=== PATIENT | female | born 1955 | race Caucasian/White ===

== ENCOUNTER 2020-09-13 07:10 | Day surgery (SDC) | payer MEDICARE, BC ==
[2020-09-13] VITALS (13 sets, daily range): BP systolic 111–165; BP diastolic 60–88
[~2020-09-13] VITALS: Ht 172.7 cm; Wt 78.3 kg
[2020-09-13] MEDS ORDERED: diphenhydrAMINE 25mg capsule PO PRN (07:40)
[2020-09-13] MEDS ORDERED: normal saline 1,000 ML IV SCH (07:40)
[2020-09-13] MEDS ORDERED: TURM500C4 PO (07:55)
[2020-09-13] MEDS ORDERED: CYAN-34 PO (07:55)
[2020-09-13] MEDS ORDERED: BIOT5000 PO (07:55)
[2020-09-13] MEDS ORDERED: LACT1CAP65 PO (07:55)
[2020-09-13] MEDS ORDERED: METO50TA16 PO (07:55)
[2020-09-13] MEDS ORDERED: ASCO-139 PO (07:55)
[2020-09-13] MEDS ORDERED: METF-438 PO (07:55)
[2020-09-13] MEDS ORDERED: ROSU20TA31 PO (07:55)
[2020-09-13] MEDS ORDERED: GLYB5TAB7 PO (07:55)
[2020-09-13] MEDS ORDERED: PROP425C PO (07:55)
[2020-09-13] MEDS ORDERED: CHOL100025 PO (07:55)
[2020-09-13 08:07] LABS: BASOPHILS % (AUTO) 0.6 % (0-1); EOSINOPHILS # (AUTO) 0.3 X10'3 (0-0.9); EOSINOPHILS % (AUTO) 3.9 % (0-6); HEMATOCRIT 43.1 % (35.0-45.0); HEMOGLOBIN 14.6 g/dl (12.0-16.0); LYMPHOCYTES # (AUTO) 1.4 X10'3 (1.1-4.8); LYMPHOCYTES % (AUTO) 21.2 % (21-51); MEAN CORPUSCULAR HGB CONC 33.9 g/dL (33.0-36.5); MEAN CORPUSCULAR VOLUME 97.3 FL (78-98); MEAN PLATELET VOLUME 7.5 FL (7.4-10.4); MONOCYTES # (AUTO) 0.4 X10'3 (0-0.9); MONOCYTES % (AUTO) 6.7 % (2-12); NEUTROPHILS # (AUTO) 4.5 X10'3 (1.8-7.7); NEUTROPHILS % (AUTO) 67.6 % (42-75); PLATELET COUNT 195 X10'3 (140-440); RED BLOOD COUNT 4.42 X10'6 (4.20-5.60); RED CELL DISTRIBUTION WIDTH 13.5 % (11.5-14.5); WHITE BLOOD COUNT 6.7 X10'3 (4.5-11.0)
[2020-09-13 08:16] LABS: ALBUMIN 4.1 G/DL (3.4-5.0); ANION GAP 11 (8-16); BLOOD UREA NITROGEN 12 MG/DL (7-18); BUN/CREATININE RATIO 14.1 (6.6-38.0); CALCIUM 9.4 MG/DL (8.5-10.1); CHLORIDE 104 MMOL/L (99-107); CREATININE 0.85 MG/DL (0.40-0.90); GLUCOSE 159 MG/DL (70-104); MAGNESIUM 1.8 MG/DL (1.5-2.4); POTASSIUM 4.4 MMOL/L (3.5-5.1); SODIUM 143 MMOL/L (135-145); TOTAL CARBON DIOXIDE 27.7 MMOL/L (24-32); eGFR 67 ML/MIN
[2020-09-13] MEDS ORDERED: fentaNYL/PF 50MCG/1 ML 2ML syringe ONE ×2 (08:53→10:11)
[2020-09-13] MEDS ORDERED: midazolam 1 mg/ML 2ml injection ONE ×4 (08:53→10:46)
[2020-09-13] MEDS ORDERED: LIDOcaine 1% (10mg/ml)w/preservative injection 20ml MDV ONE (08:54)
[2020-09-13] MEDS ORDERED: iohexol 350MG/ML 100ml bottle IV ONE ×4 (08:54→11:00)
[2020-09-13] MEDS ORDERED: iohexol 350 MG/ML 50ML vial IV ONE (08:54)
[2020-09-13] MEDS ORDERED: heparin 1,000unit/ml 10ml vial 10 ML ONE (08:54)
[2020-09-13] MEDS ORDERED: clopidogrel 300mg tablet ONE (11:44)
[2020-09-13] MEDS ORDERED: ondansetron/PF 4mg/2ml inj IV PRN (12:10)
[2020-09-13] MEDS ORDERED: OXAZEpam 15mg capsule PO PRN (12:10)
[2020-09-13] MEDS ORDERED: HYDROcodone/acetaminophen 5mg/325mg tablet PO PRN (12:10)
[2020-09-13] MEDS ORDERED: HYDROcodone/acetaminophen 10/325mg tab PO PRN (12:10)
[2020-09-13] MEDS ORDERED: proCHLORperazine 10 MG/2 ml inj IV PRN (12:10)
== END 2020-09-13 16:45 | disposition home or self-care (01) ==
LOC: SSTAY O 07:10
PROVIDERS: ATTEND Internal Medicine Cardiovascular Disease
DX: R94.39 Abnormal result of other cardiovascular function study (principal); R07.89 Other chest pain; I25.10 Atherosclerotic heart disease of native coronary artery without angina pectoris; I25.82 Chronic total occlusion of coronary artery; F17.210 Nicotine dependence, cigarettes, uncomplicated; E11.9 Type 2 diabetes mellitus without complications; E78.2 Mixed hyperlipidemia; I48.0 Paroxysmal atrial fibrillation; Z79.899 Other long term (current) drug therapy; Z90.49 Acquired absence of other specified parts of digestive tract; Z87.442 Personal history of urinary calculi; Z88.0 Allergy status to penicillin; Z88.8 Allergy status to other drugs, medicaments and biological substances; Z82.49 Family history of ischemic heart disease and other diseases of the circulatory system
CPT/HCPCS: 36415; 80048; 82948; 83735; 85025; 85610; 93458; 99152; 99153; C1725; C1751; C1760; C1769; C1874; C1892; C1894; C9600; C9601; J1644; J2001; J2250; J3010; J7030; Q0163; Q9967; A4620; A6258

== ENCOUNTER 2020-09-20 06:09 | Day surgery (SDC) | payer MEDICARE, BC ==
[~2020-09-20] VITALS: Ht 172.7 cm; Wt 77.0 kg
[2020-09-20] VITALS (9 sets, daily range): BP systolic 119–132; BP diastolic 50–69
[~2020-09-20 06:09] MED LIST: ASCO-139 PO; BIOT5000 PO; CHOL100025 PO; CYAN-34 PO; GLYB5TAB7 PO; LACT1CAP65 PO; METF-438 PO; METO50TA16 PO; PROP425C PO; ROSU20TA31 PO; TURM500C4 PO
[2020-09-20] MEDS ORDERED: CLOP75TA34 PO (06:43)
[2020-09-20] MEDS ORDERED: ASPI-100 PO (06:43)
[2020-09-20] MEDS ORDERED: diphenhydrAMINE 25mg capsule PO PRN (06:50)
[2020-09-20] MEDS ORDERED: normal saline 1,000 ML IV SCH (06:50)
[2020-09-20] MEDS ORDERED: fentaNYL/PF 50MCG/1 ML 2ML syringe ONE ×3 (07:22→09:53)
[2020-09-20] MEDS ORDERED: LIDOcaine 1% (10mg/ml)w/preservative injection 20ml MDV ONE (07:22)
[2020-09-20] MEDS ORDERED: midazolam 1 mg/ML 2ml injection ONE ×5 (07:22→10:40)
[2020-09-20] MEDS ORDERED: iohexol 350MG/ML 100ml bottle IV ONE ×2 (07:23→09:27)
[2020-09-20] MEDS ORDERED: heparin 1,000unit/ml 10ml vial 10 ML ONE (07:27)
[2020-09-20 08:24] LABS: BASOPHILS # (AUTO) 0.1 X10'3 (0-0.2); BASOPHILS % (AUTO) 0.8 % (0-1); EOSINOPHILS # (AUTO) 0.3 X10'3 (0-0.9); EOSINOPHILS % (AUTO) 3.5 % (0-6); HEMATOCRIT 41.5 % (35.0-45.0); HEMOGLOBIN 14.1 g/dl (12.0-16.0); LYMPHOCYTES # (AUTO) 1.6 X10'3 (1.1-4.8); LYMPHOCYTES % (AUTO) 19.4 % (21-51); MEAN CORPUSCULAR HEMOGLOBIN 33.1 PG (27.0-31.0); MEAN CORPUSCULAR VOLUME 97.3 FL (78-98); MEAN PLATELET VOLUME 7.4 FL (7.4-10.4); MONOCYTES # (AUTO) 0.6 X10'3 (0-0.9); MONOCYTES % (AUTO) 6.7 % (2-12); NEUTROPHILS # (AUTO) 5.8 X10'3 (1.8-7.7); NEUTROPHILS % (AUTO) 69.6 % (42-75); PLATELET COUNT 204 X10'3 (140-440); RED BLOOD COUNT 4.26 X10'6 (4.20-5.60); RED CELL DISTRIBUTION WIDTH 13.6 % (11.5-14.5); WHITE BLOOD COUNT 8.4 X10'3 (4.5-11.0)
[2020-09-20 08:33] LABS: ALBUMIN 4.2 G/DL (3.4-5.0); ANION GAP 12 (8-16); BLOOD UREA NITROGEN 18 MG/DL (7-18); BUN/CREATININE RATIO 17.3 (6.6-38.0); CALCIUM 9.6 MG/DL (8.5-10.1); CHLORIDE 103 MMOL/L (99-107); CREATININE 1.04 MG/DL (0.40-0.90); GLUCOSE 182 MG/DL (70-104); MAGNESIUM 1.8 MG/DL (1.5-2.4); POTASSIUM 4.7 MMOL/L (3.5-5.1); SODIUM 140 MMOL/L (135-145); TOTAL CARBON DIOXIDE 25.4 MMOL/L (24-32); eGFR 53 ML/MIN
[2020-09-20] MEDS ORDERED: iohexol 350 MG/ML 50ML vial IV ONE (10:16)
[2020-09-20] MEDS ORDERED: clopidogrel 300mg tablet ONE (10:53)
== END 2020-09-20 15:25 | disposition home or self-care (01) ==
LOC: SSTAY O 06:09
PROVIDERS: ATTEND Internal Medicine Cardiovascular Disease
DX: I73.9 Peripheral vascular disease, unspecified (principal); Z79.899 Other long term (current) drug therapy
CPT/HCPCS: 36415; 37226; 80048; 82948; 83735; 85025; 85610; 93005; 99152; 99153; C1725; C1751; C1760; C1769; C1876; C1894; J1644; J2001; J2250; J3010; J7030; Q9967; A4620; A6258; C2623